=== PATIENT | male | born 1980 | race Caucasian/White ===

== ENCOUNTER 2017-06-15 08:26 | Day surgery (SDC) | payer MEDICAID ==
[2017-06-15] MEDS ORDERED: ceFAZolin 2 GM/SWFI 2 GM/20 ML SYR IVP ONE (08:52)
[2017-06-15] MEDS ORDERED: BUPIVACAINE 0.5% 30 ML SDV ONE (08:59)
[2017-06-15] MEDS ORDERED: LR 1,000 ML IV ONE (09:07)
[2017-06-15] MEDS ORDERED: MIDAZOLAM 2 MG/2 ML VIAL IVP ONE (09:56)
--- NOTE | 2017-06-15 09:59 | PDANEPAE ---
ANE History of Present Illness b lap ing hernia ANE Past Medical History - Cardiovascular History Hx Hypertension: No Hx Arrhythmias: No Hx Chest Pain: No Hx Coronary Artery / Peripheral Vascular Disease: No Hx CHF / Valvular Disease: No Hx Palpitations: No - Pulmonary History Hx COPD: No Hx Asthma/Reactive Airway Disease: No Hx Recent Upper Respiratory Infection: No Hx Oxygen in Use at Home: No Hx Sleep Apnea: No Sleep Apnea Screening Result - Last Documented: Negative - Neurologic History Hx Cerebrovascular Accident: No Hx Seizures: No Hx Dementia: No - Endocrine History Hx Diabetes: No - Renal History Hx Renal Disorders: No - Liver History Hx Hepatic Disorders: No - Neurological & Psychiatric Hx Hx Neurological and Psychiatric Disorders: No - Cancer History Hx Cancer: No - Congenital Disorder History Hx Congenital Disorders: No - GI History Hx Gastrointestinal Disorders: No - Other Health History Other Health History: NEG - Chronic Pain History Chronic Pain: No - Surgical History Prior Surgeries: EAR SURG CHILD ANE Review of Systems Review of Systems: - Exercise capacity METS (RN): 6 METS ANE Patient History - Allergies Allergies/Adverse Reactions: mold Allergy (Verified 06/14/17 16:29) WT LOSS,HAIR LOSS, MEMORY PROBLEMS - Home Medications Home medications: home medication list seen and reviewed Home Medications: NK [No Known Home Meds] 06/14/17 [Last Taken Unknown] - NPO status NPO Status: no food or drink >8 hours NPO Since - Liquids (Date): 06/15/17 NPO Since - Liquids (Time): 07:00 NPO Since - Solids (Date): 06/14/17 NPO Since - Solids (Time): 23:00 - Anes Hx Anes Hx: no prior problems - Smoking Hx Smoking Status: Former smoker Marijuana use: Yes - Alcohol Use Alcohol Use: None - Family Anes Hx Family Anes Hx: none Family Hx Anesthesia Complications: NFEG ANE Labs/Vital Signs - Vital Signs Blood Pressure: 124/75 Heart Rate: 55 Respiratory Rate: 16 O2 Sat (%): 94 Height: 182.88 cm Weight: 77.111 kg ANE Physical Exam - Airway Neck exam: FROM Mallampati Score: Class 1 Mouth exam: normal dental/mouth exam - Pulmonary Pulmonary: no respiratory distress - Cardiovascular Cardiovascular: regular rate and rhythym - ASA Status ASA Status: I ANE Anesthesia Plan Anesthesia Plan: general endotracheal anesthesia
[2017-06-15] MEDS ORDERED: MIDAZOLAM 2 MG/2 ML VIAL ONE (10:03)
--- NOTE | 2017-06-15 10:03 | PDHPUP ---
History & Physical Update H&P update statement: This history and physical update is based on an assessment of the patient which was completed after admission or registration (within 24 hours), but prior to the surgery/procedure. H&P update: H&P reviewed & patient examined, no change in patient's condition since H&P completed
[2017-06-15] MEDS ORDERED: fentaNYL 100 MCG/2 ML INJ ONE ×2 (10:07→10:15)
[2017-06-15] MEDS ORDERED: PROPOFOL/EMULSION 500 MG/50 ML BOTTLE IV ONE (10:07)
[2017-06-15] MEDS ORDERED: LIDOCAINE 2% 5 ML SDV ONE (10:07)
[2017-06-15] MEDS ORDERED: DEXAMETHASONE 4 MG/ML VIAL ONE (10:11)
[2017-06-15] MEDS ORDERED: SUGAMMADEX SODIUM 200 MG/2 ML VIAL IVP ONE (10:11)
[2017-06-15] MEDS ORDERED: ROCURONIUM 50 MG/5 ML VIAL ONE ×2 (10:11→10:51)
[2017-06-15] MEDS ORDERED: ONDANSETRON 4 MG/2 ML VIAL ONE (10:11)
[2017-06-15] MEDS ORDERED: KETOROLAC 30 MG/1 ML SDV ONE (10:53)
[2017-06-15] MEDS ORDERED: PHENYLEPHRINE HCL 100 MCG/ML SYR IVP PRN (11:10)
[2017-06-15] MEDS ORDERED: fentaNYL 100 MCG/2 ML INJ IVP PRN (11:10)
[2017-06-15] MEDS ORDERED: LR 500 ML IV PRN (11:10)
[2017-06-15] MEDS ORDERED: ACETAMINOPHEN 500 MG TAB PO PRN (11:10)
[2017-06-15] MEDS ORDERED: LABETALOL HCL 5 MG/ML 20 ML MDV IVP PRN (11:10)
[2017-06-15] MEDS ORDERED: oxyCODONE IR 5 MG TAB PO PRN (11:10)
[2017-06-15] MEDS ORDERED: DEXAMETHASONE 4 MG/ML VIAL IVP PRN (11:10)
[2017-06-15] MEDS ORDERED: HYDROCODONE/APAP 5/325 TAB PO PRN (11:10)
[2017-06-15] MEDS ORDERED: PROMETHAZINE HCL 25 MG/ML INJ IVP PRN (11:10)
[2017-06-15] MEDS ORDERED: NALOXONE HCL 0.4 MG/ML INJ IVP PRN (11:10)
[2017-06-15] MEDS ORDERED: ONDANSETRON 4 MG/2 ML VIAL IVP PRN (11:10)
[2017-06-15] MEDS ORDERED: ALBUTEROL 3 ML DEYVIAL IH PRN (11:10)
[2017-06-15] MEDS ORDERED: HYDROmorphONE/DILAUDID 1 MG/ML INJ IVP PRN (11:10)
[2017-06-15] MEDS ORDERED: GLYCOPYRROLATE 0.2 MG/1 ML VIAL ONE ×2 (11:15)
[2017-06-15] MEDS ORDERED: NEOSTIGMINE METHYLSULFATE 3 MG/3 ML SYR ONE (11:15)
--- NOTE | 2017-06-15 11:43 | POSTOPPROG ---
Post Op Note Date of Operation: 06/15/17 Surgeon: Zach Arshad Surgery Tech: Madhu Anesthesiologist: [place] Anesthesia: GET(General Endotracheal) Pre-op Diagnosis: Bilateral inguinal hernias Post-op Diagnosis: same Indication: pain Procedure: Bilateral inguinal hernia repairs, laparoscopic Findings: Indirect hernias Inf/Abcess present in the surg proc area at time of surgery?: No Depth: Organ Space EBL: Minimal
[2017-06-15 14:10] VITALS: BP 132/76
== END 2017-06-15 13:05 | disposition home or self-care (01) ==
LOC: FSGY 08:26
PROVIDERS: ATTEND Surgery
PROC: 0YUA4JZ Supplement Bilateral Inguinal Region with Synthetic Substitute, Percutaneous Endoscopic Approach (ICD-10-PCS; principal; 2017-06-15 09:30)
DX: K40.20 Bilateral inguinal hernia, without obstruction or gangrene, not specified as recurrent (principal); Z87.891 Personal history of nicotine dependence
CPT/HCPCS: C1727; C1781; J0690; J1100; J1885; J2250; J2405; J2704; J2710; J3010

== ENCOUNTER 2018-09-01 09:41 | Emergency (ER) | payer MEDICAID | END 2018-09-01 10:10 | disposition home or self-care (01) | LOC: CED 09:41 ==